=== PATIENT | male | born 1990 | race Caucasian/White ===

== ENCOUNTER 2017-03-30 23:29 | Emergency (ER) | payer SELFPAY ==
[~2017-03-30] VITALS: Ht 167.6 cm; Wt 109.3 kg
[2017-03-31 01:21] VITALS: BP 172/90
== END 2017-03-31 01:22 | disposition home or self-care (01) ==
LOC: EXP 23:29 → EME 23:29 → EXP 03-31 01:22
PROC: 0HQNXZZ Repair Left Foot Skin, External Approach (ICD-10-PCS; principal; 2017-03-31)
DX: S91.112A Laceration without foreign body of left great toe without damage to nail, initial encounter (principal); W27.0XXA Contact with workbench tool, initial encounter; Y93.89 Activity, other specified
CPT/HCPCS: 73630; 99281; 99283; S0020